=== PATIENT | male | born 1960 | race Caucasian/White ===

== ENCOUNTER 2017-03-29 18:43 | Observation (INO) | payer MEDICARE, OTHER ==
--- NOTE | ~2017-03-29 | HP ---
History And Physical [place] [id number] [facility] [place]. [address] NAME: KELLY POLANCO : 60 STATUS : ADM Chidi PAT#: [id number] AGE: 56 ADM/REG DATE : 03/29/17 MR#: [id number] REPORT SERV DATE: 03/30/17 DICTATED BY: BEAU MATHEWS DATE: 03/29/17 REPORT STATUS : Draft TRANSCRIBED BY: MODL DATE: 03/29/17 DATE OF ADMISSION: 03/29/2017 POINT OF ENTRY: [facility] Emergency Department. PRIMARY CARE PHYSICIAN: Laie, [place]. PRIMARY 3D SPECIALIST: The patient is scheduled to see Dr. West later this year. CHIEF COMPLAINT: Chest pain and presyncope with fall. HISTORY OF PRESENT ILLNESS: Mr. Polanco is a 56-year-old gentleman with a history of chronic hepatitis C with resulting hepatic cirrhosis likely due to hepatitis C as well as alcohol abuse and hypertension, who presents to the emergency department with reports of a few year history of intermittent episodes of chest pain, a few week history of feeling weak and dizzy with exertion as well as a recent fall in the setting of syncope versus presyncope. The patient states he has had episodes of squeezing intermittent chest pain over the left chest for many years now. It is associated with shortness of breath and occasionally will radiate to the left arm. The patient does have an extensive family medical history of premature coronary artery disease in his father and brother. He has had a stress test done about 14 months ago that reportedly was unremarkable and also an echocardiogram done about two months ago which showed some unknown aortic valve disease but otherwise was reportedly unremarkable. I do not have records of either the studies at this time. Given his ongoing reports of chest pain, he is scheduled to see Dr. West later this summer. The patient also reports for the past few weeks he has just felt generally weak and dizzy. As a result, he has curtailed his activity and rarely exerts himself because he is afraid of getting weak and dizzy and falling and/or passing out. Today, while in the bathroom, patient has either suffered a presyncopal spell or a complete syncopal spell, falling in the bathroom and striking the left temporal region of his head up against the bathroom vanity. Initial evaluation in the emergency department notable for a CT scan of the brain that was negative. EKG was nonischemic with a heart rate of 63. Labs notable for some transaminitis, which I presume is chronic. Troponin was negative. Chest x-ray was clear, and orthostatic vital signs were negative. He was subsequently admitted to the Hospitalist Service for further evaluation and management. Comprehensive system otherwise negative unless listed in history of present illness. PREVIOUS MEDICAL HISTORY: 1. Chronic hepatitis C. 2. Hepatic cirrhosis thought to be secondary to alcohol use and hepatitis C. History And Physical [address] [address] NAME: KELLY POLANCO : 60 STATUS : ADM Chidi PAT#: [id number] AGE: 56 ADM/REG DATE : 03/29/17 MR#: [id number] REPORT SERV DATE: 03/30/17 DICTATED BY: BEAU MATHEWS DATE: 03/29/17 REPORT STATUS : Draft TRANSCRIBED BY: JESSICA DATE: 03/29/17 3. Hypertension. 4. Chronic lower back pain. SURGICAL HISTORY: 1. Cholecystectomy about six weeks ago. 2. Bilateral inguinal hernia repair surgery. 3. Liver biopsy. ALLERGIES: NO KNOWN DRUG ALLERGIES BUT HAS BEEN TOLD TO AVOID TYLENOL. HOME MEDICATIONS: Pending at the time of dictation but the patient does state he takes metoprolol 100 mg a day for high blood pressure. SOCIAL HISTORY: He denies any tobacco. Quit drinking about six years ago with a diagnosis of cirrhosis. Denies any illicits. He is retired/on disability from an occupational accident a few years ago. FAMILY MEDICAL HISTORY: Mother with hypertension. Father with heart disease in his 50s. Sibling with coronary artery disease in their 40s. LABS AND IMAGIN. White count is 11.0, hemoglobin is 14.6, hematocrit 42.4, and platelet count is 201. INR 1.1. 2. Sodium is 145, potassium 4.5, chloride 111, carbon dioxide 30, BUN 11, creatinine 1.00, glucose is 96, calcium is 9.3, magnesium 2.3, protein 7.5, albumin is 3.0, bilirubin is 0.5, ALT is 81, AST 86, alkaline phosphatase is 62. 3. Lipase 516. 4. Troponin is negative. BNP is 559.6. 5. Chest x-ray per my review shows no acute cardiopulmonary abnormality. EKG per my review shows normal sinus rhythm. Heart rate of 63 with no evidence of any acute ischemia or infarction. No prolonged QT, prolonged AV block, or bundle branch block. 6. CT scan of brain shows no acute intracranial abnormality. 7. Lower extremity Doppler is negative for DVT. PHYSICAL EXAMINATION: VITAL SIGNS: Temperature 97.7 degrees Fahrenheit, pulse initially is 58, respirations 16, saturating 90% on room air, and blood pressure 137/74. On recheck, blood pressure is now 153/67, pulse of 62. GENERAL: The patient is awake, alert, in no acute distress. Resting comfortably in bed. He is a well-developed, well-nourished, male. at bedside. HEENT: Atraumatic and normocephalic. Moist mucous membranes. Pupils are equal, round, reactive to light and accommodation. Extraocular eye movement is intact. No scleral icterus. NECK: No jugular venous distention. No carotid bruits. CARDIAC: Regular rate and rhythm. No murmurs or gallops. Normal S1, S2. LUNGS: Clear to auscultation bilaterally. No wheezes, rhonchi, or crackles. ABDOMEN: Soft, nontender, nondistended with good bowel sounds. No rebound, guarding, or History And Physical [address] [address] NAME: KELLY POLANCO : 60 STATUS : ADM Chidi PAT#: [id number] AGE: 56 ADM/REG DATE : 03/29/17 MR#: [id number] REPORT SERV DATE: 03/30/17 DICTATED BY: BEAU MATHEWS DATE: 03/29/17 REPORT STATUS : Draft TRANSCRIBED BY: MODL DATE: 03/29/17 rigidity, is somewhat obese. EXTREMITIES: Warm, perfused with no cyanosis or clubbing. He has bilateral trace 1+ pedal edema. SKIN: Warm and dry. PSYCH: Affect appropriate. NEURO: Alert and oriented x3. Cranial nerves 2 through 12 grossly intact. Speech is normal. Gait not assessed. ASSESSMENT: Mr. Polanco is a 56-year-old gentleman who presents with a fall in the bathroom today in the setting of syncope versus presyncope. Also noted to have chronic intermittent chest pain of unclear etiology. PROBLEM LIST: 1. Mechanical fall with head trauma. 2. Syncope versus presyncope. 3. Weakness and dizziness. 4. Chronic chest pain. 5. Hepatic cirrhosis. PLAN: 1. Mechanical fall. The patient's CT scan of the brain is negative as is his chest x-ray. We will continue to monitor. 2. Syncope versus presyncope. It is unclear if the patient had a true syncopal event or just felt so weak and dizzy that suffered a fall in bathroom. We will recheck an echocardiogram. Check carotid arterial Dopplers as well as continue telemetry monitoring and enzyme rule out. Place him on some low-dose IV fluid hydration. Of note, the patient was slightly bradycardic in triage and now is hovering in the low 60s. I suspect the patient may have some degree of symptomatic bradycardia from his metoprolol dose. As such we will dose reduce it by 50% here in the hospital and observe for any improvement in symptoms. 3. Chronic intermittent chest pain. The patient has already had echocardiogram and stress test recently. However, given his family history and other risk factors such as hypertension, we will repeat cardiac enzyme rule out, stress test, as well as echocardiogram. 4. Hypertension. We will dose reduce his metoprolol. Add on some low-dose lisinopril with the ultimate goal of possibly limiting his metoprolol altogether to see if this helps with the symptomatology. 5. Hepatic cirrhosis. The patient appears well compensated at this time. Continue to monitor. 6. DVT prophylaxis. Lovenox subcu. CODE STATUS: The patient wished to be full code. SAUMYA/JESSICA History And Physical [address] [facility] [address] NAME: KELLY POLANCO : 60 STATUS : ADM Chidi PAT#: [id number] AGE: 56 ADM/REG DATE : 03/29/17 MR#: [id number] REPORT SERV DATE: 03/30/17 DICTATED BY: BEAU MATHEWS DATE: 03/29/17 REPORT STATUS : Draft TRANSCRIBED BY: MODHill DATE: 03/29/17 Beau Mathews MD / [id number] CC: Nimo Stevenson M.D.
--- NOTE | ~2017-03-29 | DS ---
Discharge Summary [facility] [address] [place]. [address] NAME: KELLY POLANCO : 60 STATUS : DIS Chidi PAT#: [id number] AGE: 56 ADM/REG DATE : 03/29/17 MR#: [id number] REPORT SERV DATE: 03/31/17 DICTATED BY: TAWANDA CASTORENA DATE: 03/30/17 REPORT STATUS : Draft TRANSCRIBED BY: MODL DATE: 03/30/17 ADMISSION DATE: 03/29/2017 DISCHARGE DATE: 03/30/2017 PROBLEM LIST: 1. Dizziness/vertigo with fall. 2. Chronic noncardiac chest pain with normal heart catheterization, approximately one year ago at [facility] and negative EGD at [facility] recently. 3. Newly diagnosed hepatitis C with reported cirrhosis two months ago after cholecystectomy. 4. Right greater than left foot pain after a fall. 5. History of alcohol abuse. 6. Chronic back pain. 7. Obesity with body mass index of 31. 8. Suspected hypothyroidism with elevated TSH at 6.41. HISTORY: This patient has had more than two years of atypical noncardiac chest pains. He and girlfriend report that at [facility] he had an abnormal stress test and underwent a left heart catheterization. He and girlfriend state that they were told that there was less than a 10% narrowing of one coronary artery and all the others were unremarkable. He has had hospitalizations there recently with abdominal pain. He reports having had an EGD that was unremarkable. He was diagnosed as having abnormal gallbladder and underwent a cholecystectomy according to the patient and girlfriend. During that they report that at [facility], a liver biopsy was done showing hepatitis C and cirrhosis and he is now a patient of Dr. Broderick Mcmahon, the janitor helper. The patient also describes that he has had an echocardiogram recently up at [facility] and will be following up with Dr. eWst of Cardiology for some mild valvular insufficiency reportedly found on an echocardiogram. He presented to our emergency room stating that in addition to these chest pains, he had dizziness which he also states is not new. Yesterday, he felt dizzy, lost his balance, fell, hit the left side of his head on a cabinet, states the room was spinning around before he fell, did not pass out, his girlfriend came in because she heard him fall, he was conscious. They brought him to the emergency room. In the emergency room, his orthostatic blood pressures were normal. His CT scan of the brain without contrast was unremarkable. Chest x-ray unremarkable. He also complained of swelling and pain in his feet and legs, so they did in the emergency room bilateral leg venous Doppler. These were both normal. EKG revealed normal sinus rhythm at 63 beats per minute, otherwise, normal. In the emergency room, his pulse was in the 50s, the ER doc want him kept for observation. The patient's metoprolol was reduced in strength to 50 mg a day. His cardiac enzymes were normal on three occasions. His kidney function is normal. His AST is 86 and ALT is 81. His TSH was mildly elevated at 6.41. His free T4 was normal at 1.2. His white count is 13.1, hemoglobin 13.9, and platelets 190,000. Pro-time is 15.5, INR 1.2, and PTT is 29.8. B-natriuretic peptide normal at 59.6. Urinalysis normal. Uric acid level was normal at Discharge Summary [address] [address] NAME: KELLY POLANCO : 60 STATUS : DIS Chidi PAT#: [id number] AGE: 56 ADM/REG DATE : 03/29/17 MR#: [id number] REPORT SERV DATE: 03/31/17 DICTATED BY: TAWANDA CASTORENA DATE: 03/30/17 REPORT STATUS : Draft TRANSCRIBED BY: MODHill DATE: 03/30/17 6.6. Urine drug screen was positive for benzodiazepines, but he does take Xanax at home, it was positive for opiates, but the ER had prescribed to him already some morphine. X-rays were done of the feet. To my eye, they looked to have no fracture. At this point in time, I think the patient can be discharged to follow up with his primary team at [facility] in [place] as well as his upcoming appointment with Dr. West and his janitor helper, Dr. Broderick Mcmahon. DISCHARGE MEDICATIONS: Xanax 0.5 mg t.i.d. p.r.n. anxiety, which is a chronic medicine for him; metoprolol 100 mg half tablet daily; omeprazole 40 mg daily; Tylenol 650 q.8 hours p.r.n. mild pain; tramadol 50 mg half tablet p.o. b.i.d. p.r.n. more intense pain, #14 prescribed, no refill. DICTATED BY: Nimo Stevenson/JESSICA Tawanda Castorena M.D. / [id number] CC: Nimo Stevenson M.D. Chirag Patel, M.D. [facility]
[2017-03-29 19:09] LABS: BASOPHILS 0.6 %; BASOPHILS ABSOLUTE 0.07 10/3/uL (0.0-0.16); EOSINOPHILS 6.6 %; EOSINOPHILS ABSOLUTE 0.73 10/3/uL (0.0-0.53); HEMATOCRIT 42.4 % (40.0-51.0); HEMOGLOBIN 14.6 g/dL (13.6-17.8); IMMATURE GRANULOCYTES 0.4 %; IMMATURE GRANULOCYTES ABSOLUTE 0.04 10/3/uL (0.0-0.11); LYMPHOCYTES 29.2 %; LYMPHOCYTES ABSOLUTE 3.21 10/3/uL (0.67-4.30); MANUAL DIFF NO %; MEAN CORPUS HGB CONC 34.4 g/dL (32.0-36.0); MEAN CORPUSCULAR HEMOGLOB 33.6 pg (26.0-34.0); MEAN CORPUSCULAR VOLUME 97.5 fL (80-100); MONOCYTES 7.5 %; MONOCYTES ABSOLUTE 0.83 10/3/uL (0.21-1.20); NEUTROPHILS 55.7 %; NEUTROPHILS ABSOLUTE 6.13 10/3/uL (2.02-8.40); PLATELET COUNT 201 10/3/uL (150-400); RBC DISTRIBUTION WIDTH 13.5 % (12.0-16.0); RED CELL COUNT 4.35 10/6/uL (4.7-6.1)
[2017-03-29 19:20] LABS: INTERNATIONAL NORMAL RATI 1.1 UNITS (-); PARTIAL THROMBO TIME 29.8 SEC (22.5-37.2); PROTIME (NOT ORD) 14.4 SEC (12.0-14.5)
[2017-03-29 19:23] LABS: BUN (BLOOD UREA NITROGEN) 11 MG/DL (6-23); CALCIUM, SERUM 9.3 MG/DL (8.5-10.4); CHEST PAIN PROFILE TAT 0 Hrs 18 Mins; CHLORIDE, SERUM 111 MMOL/L (96-112); CO2 (CARBON DIOXIDE) 30 MMOL/L (24-34); GFR AFRICAN AMERICAN 97 ML/MIN (>=60); GFR NON AFRICAN AMERICAN 84 ML/MIN (>=60); GLUCOSE, SERUM 96 MG/DL (60-99); POTASSIUM, SERUM 4.5 MMOL/L (3.5-5.3); SODIUM, SERUM 145 MMOL/L (135-148); TROPONIN I <0.02 NG/ML (<0.05)
[2017-03-29 20:42] LABS: ALKALINE PHOSPHATASE 62 U/L (45-117); DIRECT BILIRUBIN 0.2 MG/DL (0.0-0.4); INDIRECT BILIRUBIN(NOT ORDER) 0.3 MG/DL (0.1-0.9); SGOT(AST) 86 U/L (5-40); SGPT(ALT) 81 U/L (5-65); TOTAL BILIRUBIN 0.5 MG/DL (0-1.2); TOTAL PROTEIN 7.5 G/DL (6.0-8.5)
[2017-03-30] MEDS ORDERED: PRILOSEC40 MG PO (00:34)
[2017-03-30] MEDS ORDERED: LOP100 PO (00:34)
[2017-03-30] MEDS ORDERED: X5 PO (00:34)
[2017-03-30 03:48] LABS: BASOPHILS 0.4 %; BASOPHILS ABSOLUTE 0.05 10/3/uL (0.0-0.16); EOSINOPHILS 6.4 %; EOSINOPHILS ABSOLUTE 0.84 10/3/uL (0.0-0.53); HEMATOCRIT 40.5 % (40.0-51.0); HEMOGLOBIN 13.9 g/dL (13.6-17.8); IMMATURE GRANULOCYTES 0.2 %; IMMATURE GRANULOCYTES ABSOLUTE 0.03 10/3/uL (0.0-0.11); LYMPHOCYTES 23.8 %; LYMPHOCYTES ABSOLUTE 3.11 10/3/uL (0.67-4.30); MEAN CORPUS HGB CONC 34.3 g/dL (32.0-36.0); MEAN CORPUSCULAR HEMOGLOB 33.3 pg (26.0-34.0); MEAN CORPUSCULAR VOLUME 96.9 fL (80-100); MEAN PLATELET VOLUME 10.1 fL (9.2-13.0); MONOCYTES 8.4 %; NEUTROPHILS 60.8 %; NEUTROPHILS ABSOLUTE 7.92 10/3/uL (2.02-8.40); PLATELET COUNT 190 10/3/uL (150-400); RBC DISTRIBUTION WIDTH 13.7 % (12.0-16.0); RED CELL COUNT 4.18 10/6/uL (4.7-6.1); WHITE BLOOD CELLS 13.1 10/3/uL (4.5-10.5)
[2017-03-30 03:56] LABS: MANUAL DIFF NO %
[2017-03-30 03:59] LABS: INTERNATIONAL NORMAL RATI 1.2 UNITS (-); PROTIME (NOT ORD) 15.5 SEC (12.0-14.5)
[2017-03-30 04:10] LABS: BUN (BLOOD UREA NITROGEN) 13 MG/DL (6-23); CALCIUM, SERUM 9.1 MG/DL (8.5-10.4); CHLORIDE, SERUM 111 MMOL/L (96-112); CO2 (CARBON DIOXIDE) 29 MMOL/L (24-34); CPK (IF ELEVATED MB BANDS) 67 U/L (0-200); CREATININE 1.11 MG/DL (0.70-1.30); GFR AFRICAN AMERICAN 86 ML/MIN (>=60); GFR NON AFRICAN AMERICAN 74 ML/MIN (>=60); GLUCOSE, SERUM 92 MG/DL (60-99); POTASSIUM, SERUM 4.3 MMOL/L (3.5-5.3); SODIUM, SERUM 146 MMOL/L (135-148); TROPONIN I <0.02 NG/ML (<0.05)
[2017-03-30 07:51] LABS: AMPHETAMINES (NOT ORD) NEG (NEG); BARBITURATES (NOT ORDERED NEG (NEG); BENZODIAZEPINES (NOT ORD) POS (NEG); CANNABINOIDS (THC) NEG (NEG); COCAINE (NOT ORDERED) NEG (NEG); OPIATES POS (NEG); PHENCYCLIDINE(PCP) NEG (NEG); TRICYCLICS NEG (NEG)
[2017-03-30 07:55] LABS: ASCORBIC ACID (UR NOT ORDER) NEG (NEG); BILIRUBIN, URINE NEGATIVE (NEG); KETONE, URINE NEGATIVE (NEG); LEUKOCYTE ESTERASE(NOT OR NEG (NEG); WBC (NOT ORDERED) (RFLEX) 1 (0-5)
[2017-03-30 11:09] LABS: CK-MB 0.6 NG/ML; CPK 69 U/L (0-200); TROPONIN I <0.02 NG/ML (<0.05)
[2017-03-30] MEDS ORDERED: ULTRAM50 PO (19:16)
[2017-03-30] MEDS ORDERED: T PO (19:17)
== END 2017-03-30 20:32 | disposition home or self-care (01) ==
LOC: ER 18:43 → 6NO 23:33
PROVIDERS: Emergency Medicine; Hospitalist; Internal Medicine
DX: R07.9 Chest pain, unspecified (principal); S09.90XA Unspecified injury of head, initial encounter; K74.60 Unspecified cirrhosis of liver; I10 Essential (primary) hypertension; R42 Dizziness and giddiness; R53.1 Weakness; W19.XXXA Unspecified fall, initial encounter; E66.9 Obesity, unspecified; F41.9 Anxiety disorder, unspecified; Z90.49 Acquired absence of other specified parts of digestive tract; Z98.890 Other specified postprocedural states; Z88.8 Allergy status to other drugs, medicaments and biological substances; Z79.899 Other long term (current) drug therapy; Z68.31 Body mass index [BMI] 31.0-31.9, adult; Z79.01 Long term (current) use of anticoagulants
CPT/HCPCS: 70450; 71020; 73630-50; 80048; 80076; 80305; 81001; 82550; 82553; 83690; 83735; 83880; 84439; 84443; 84484; 84550; 85025; 85610; 85730; 93005; 93970; 96374; 99285; A9270-GY; G0378; J2405